=== PATIENT | female | born 1990 | race Caucasian/White ===

== ENCOUNTER 2018-03-14 20:31 | Emergency (ER) | payer OTHER ==
--- NOTE | 2018-03-14 20:59 | ED Physician Documentation ---
PD HPI HEAD INJURY - Stated complaint Stated Complaint: HEAD INJ - Chief complaint Chief Complaint: Trauma Hd/Nk - History obtained from History obtained from: Patient, Family - History of Present Illness Mechanism of head injury: Other (markus ellison rolleleanor and she) Timing - onset: How many hours ago (1) Pain level max: 7 Pain level now: 7 Location of injury: Right Quality of pain: Aching Associated symptoms: No: LOC, AMS, Amnesia, Nausea / vomiting, Neck pain, Paresthesias, Seizures, Ear drainage, Nasal drainage, Other Symptoms improve with: Rest Symptoms worsen with: Palpation Contributing factors: No: Anticoagulated, Intoxicated Similar symptoms before: Has not had sx before Recently seen: Not recently seen - Additional information Additional information: markus ellison rolled and she struck her head on a pole. No LOC. Nausea but no vomiting. No focal neuro deficits. initially saw spots in her vision, this is resolved now. Review of Systems Constitutional: denies: Fever, Chills Ears: denies: Ear pain Nose: denies: Rhinorrhea / runny nose, Congestion Respiratory: denies: Cough, Wheezing GI: denies: Nausea, Vomiting, Diarrhea : denies: Now EGA Skin: denies: Rash Musculoskeletal: denies: Neck pain, Back pain Neurologic: denies: Focal weakness, Difficulty speaking, Headache PD PAST MEDICAL HISTORY - Past Medical History Past Medical History: No - Past Surgical History Past Surgical History: No - Present Medications Home Medications: Ambulatory Orders Medication Instructions Recorded Confirmed No Known Home Medications 03/14/18 03/14/18 - Allergies Allergies/Adverse Reactions: Allergies Allergy/AdvReac Type Severity Reaction Status Date / Time [facility] Allergy Edema Verified 03/14/18 20:40 Penicillins Allergy Edema Verified 03/14/18 20:40 - Living Situation Living Situation: reports: With family Living Arrangement: reports: At home - Social History Does the pt have substance abuse?: No - Family History Family history: reports: Non contributory PD ED PE NORMAL - Vitals Vital signs reviewed: Yes - General General: Alert and oriented X 3, No acute distress, Well developed/nourished - HEENT HEENT: PERRL (Normal funduscopic exam bilateral eyes. The right eye was also reviewed with the ultrasound, no visible retinal detachment. No hyphemas. No lens dislocation.), EOMI, Ears normal, Moist mucous membranes, Other (1 cm laceration R worship. diffuse tenderness across the R parietal area. no palpable skull fractures. ) - Neck Neck: Supple, no meningeal sign - Cardiac Cardiac: RRR, Strong equal pulses - Respiratory Respiratory: No respiratory distress, Clear bilaterally - Abdomen Abdomen: Soft, Non tender, Non distended - Derm Derm: Warm and dry - Extremities Extremities: No edema, No calf tenderness / cord - Neuro Neuro: Alert and oriented X 3 - Psych Psych: Normal mood, Normal affect Results - Vitals Vitals: Vital Signs - 24 hr 03/14/18 03/14/18 20:35 21:52 Temperature 36.5 C Heart Rate 77 78 Respiratory 16 14 Rate Blood Pressure 115/78 109/67 O2 Saturation 100 99 Oxygen O2 Source Room air - Rads (name of study) head CT Radiology: Prelim report reviewed, EMP read contemporaneously, See rad report (No acute intracranial abnormality) Procedures - Laceration (location) scalp, R parietal Length in cm: 1 Wound type: Linear, Into subcut fat, Clean Neurovascular status: Sensory intact, Motor intact, Vascular intact Wound Preparation: Irrigated copiously NS, Wound explored, To the base. No: FB identified, FB removed Skin layer closure: Angela (1) Other: Patient tolerated well, No complications, Neurovascular intact, Tetanus UTD Complexity: Simple PD MEDICAL DECISION MAKING - ED course Complexity details: reviewed results, re-evaluated patient, considered differential, d/w patient, d/w family ED course: 27-year-old female status post closed head injury. Negative head CT. Does have a laceration to the right worship, this was repaired with a staple. Tolerated well. This is within the hairline. She also had some spots to the vision in her right eye after the incident. She still has some blurriness to her vision. No acute findings on funduscopic exam or ultrasound of the eyes. No evidence of hyphema, retinal detachments. Possible mild traumatic iritis? Though pupils are equal and reactive. Does not have any eye pain. We will have her follow-up with ophthalmology for repeat evaluation of this. Patient counseled regarding signs and symptoms for which I believe and urgent re-evaluation would be necessary. Patient with good understanding of and agreement to plan and is comfortable going home at this time This document was made in part using voice recognition software. While efforts are made to proofread this document, sound alike and grammatical errors may occur. Departure - Departure Disposition: 01 Home, Self Care Clinical Impression: Vision disturbance Scalp laceration Qualifiers: Encounter type: initial encounter Qualified Code(s): S01.01XA - Laceration without foreign body of scalp, initial encounter Head injury Qualifiers: Encounter type: initial encounter Qualified Code(s): S09.90XA - Unspecified injury of head, initial encounter Condition: Good Instructions: ED Head Injury Closed, ED Laceration Scalp Stitch Or Stap Follow-Up: [facility] Velaz[facility] [Provider Group] - Within 3 Days Migue Perrin MD [Provider Admit Priv/Credential] - Comments: Return if you worsen. You can use Motrin or Tylenol as needed for pain. The angela should be removed in approximately 10 days with your doctor. You should see an criminal justice social worker within the next 2 days to double check your right eye vision. It does appear normal on examination tonight may be just related to the trauma. You can call your doctor in the morning to find out who you can see. Discharge Date/Time: 03/14/18 21:52
[2018-03-14] MEDS ORDERED: HYDROcod/ACETAM 5/325 MG TABLET PO STA (21:03)
--- NOTE | 2018-03-14 21:24 | CT Report ---
Reason: R parietal head injury Procedure Date: 03/14/2018 Accession Number: [id number] / [id number] Procedure: CT - Head W/O CPT Code: FULL RESULT: EXAM: CT HEAD EXAM DATE: 03/14/2018 09:08 PM. CLINICAL HISTORY: Right parietal head trauma. Nausea. COMPARISON: None. TECHNIQUE: Multiaxial CT images were obtained from the foramen magnum to the vertex. Reformats: Sagittal and coronal. IV contrast: None. In accordance with CT protocol optimization, one or more of the following dose reduction techniques were utilized for this exam: automated exposure control, adjustment of mA and/or KV based on patient size, or use of iterative reconstructive technique. FINDINGS: Parenchyma: No intraparenchymal hemorrhage. No evidence of mass, midline shift, or CT findings of infarction. Abdi-white differentiation is distinct. Extraaxial Spaces: Normal for age. No subdural or epidural collections identified. Ventricles: Normal in size and position. Sinuses and Orbits: Imaged paranasal sinuses, orbits, and mastoids show no significant abnormality. Bones: No evidence of fracture or calvarial defect. Other: None. IMPRESSION: Normal head CT. [facility]
[2018-03-14 21:54] VITALS: BP 109/67
== END 2018-03-14 21:52 | disposition home or self-care (01) ==
LOC: ED 20:31 → EDBD 20:31 → ED 21:52
DX: H53.9 Unspecified visual disturbance (principal); S01.01XA Laceration without foreign body of scalp, initial encounter; S09.90XA Unspecified injury of head, initial encounter; V86.69XA Passenger of other special all-terrain or other off-road motor vehicle injured in nontraffic accident, initial encounter
CPT/HCPCS: 12001; 70450; 99283; 99284; A9270